=== PATIENT | female | born 1985 | race Hispanic/Latino ===

== ENCOUNTER 2025-03-06 17:30 | Emergency (ER) | payer OTHER ==
[~2025-03-06 17:30] MED LIST: Iopamidol 370 76% 100 ML VIAL ONE
[2025-03-06] MEDS ORDERED: Orphenadrine Citrate 60 MG/2 ML VIAL ONE (18:04)
[2025-03-06 18:07] LABS: #Basophils 0.2 thou/uL (0.0-0.2); #Eosinophils 0.4 thou/uL (0.0-0.7); #Lymphocytes 2.9 thou/uL (1.20-3.40); #Monocytes 0.8 thou/uL (0.11-0.59); #Neutrophils 3.4 thou/uL (1.40-6.50); %Basophils 2.7 % (0.0-1.0); %Eosinophils 5.7 % (0.0-10.0); %Lymphocytes 37.2 % (21.0-51.0); %Monocytes 10.9 % (0.0-10.0); %Neutrophils 43.5 % (42.0-75.0); Hematocrit 44.9 % (36.0-47.0); Hemoglobin 14.5 g/dL (12.0-16.0); Mean Corpuscular Hemoglobin 29.9 pg (27.0-31.0); Mean Corpuscular Volume 92.5 fl (78.0-98.0); Platelet Count 236 10x3/uL (130-400); Red Blood Cell (RBC) Count 4.85 mill/uL (4.20-5.40); White Blood Cell (WBC) Count 7.7 10x3/uL (4.8-10.8)
[2025-03-06 18:21] LABS: ALT (SGPT) 225 U/L (Less than 34); AST (SGOT) 120 U/L (11-34); Albumin 3.9 g/dL (3.1-4.5); Alkaline Phosphatase 101 U/L (40-110); Anion Gap 17 mmol/L (10-20); BUN (Urea Nitrogen) 15 mg/dL (7.0-18.7); Bilirubin, Total 0.2 mg/dL (0.3-1.2); Calc. Creatinine Clearance 0 mL/min (70-130); Calcium 9.0 mg/dL (7.8-10.44); Carbon Dioxide 22 mmol/L (22-29); Chloride 106 mmol/L (98-107); Globulin 3.5 g/dL (2.4-3.5); Glucose 90 mg/dL (70-105); Potassium 4.0 mmol/L (3.5-5.1); Sodium 141 mmol/L (136-145)
[2025-03-06 18:22] LABS: Acetaminophen Less than 10 mcg/mL (Less than 10); Magnesium 2.0 mg/dL (1.6-2.6); Salicylate Less than 8.0 mg/dL (Less than 8.0)
[2025-03-06 18:24] LABS: Troponin I Less than 0.010 ng/mL (< 0.028)
[2025-03-06 18:44] LABS: BHCG - Serum Negative (NEGATIVE); Pregs Control Bar Appear? YES (CONTROL BAR)
[2025-03-06 18:45] LABS: Pregs Control Background? CLEAR/WHITE (CLR/WHITE)
[2025-03-06 18:58] LABS: Cocaine Metabolite Screen Negative (Negative); THC/Cannabinoid Screen Negative (Negative); Tricyclic Screen Negative (Negative)
[2025-03-06] MEDS ORDERED: Ketorolac Tromethamine 30 MG (1 mL) VIAL ONE (20:08)
[2025-03-06] MEDS ORDERED: Boostrix 0.5 ML (Tdap) VIAL (>/=7 yrs of age) ONE (20:08)
[2025-03-06] MEDS ORDERED: Oxymetazoline HCl 0.05% (30 ML BOT) ONE (20:22)
[2025-03-06] MEDS ORDERED: HYDROcodone/Acetaminophen 5/325 mg Tablet ONE (22:11)
== END 2025-03-06 22:29 | disposition home or self-care (01) ==
LOC: MADERS 17:30
DX: S16.1XXA Strain of muscle, fascia and tendon at neck level, initial encounter (principal); S39.012A Strain of muscle, fascia and tendon of lower back, initial encounter; S20.219A Contusion of unspecified front wall of thorax, initial encounter; S00.93XA Contusion of unspecified part of head, initial encounter; S40.021A Contusion of right upper arm, initial encounter; V99.XXXA Unspecified transport accident, initial encounter; Z23 Encounter for immunization
CPT/HCPCS: 70450; 70486; 71260; 72125; 74177; 80053; 80306; 80307; 83735; 84484; 84703; 85025; 90471; 90715; 93005; 96374; 96375; J1885; J2360; J2919; J7030; Q9967